=== PATIENT | male | born 1965 | race Two or more races ===

== ENCOUNTER 2017-01-17 06:24 | Emergency (ER) | payer SELFPAY ==
[~2017-01-17] VITALS: Ht 172.7 cm; Wt 74.8 kg
[2017-01-17 07:10] LABS: BASOPHIL % 0.3 % (0-2); PLATELET COUNT 389 x10^3mcL (130-400); RED CELL DISTRIBUTION WIDTH 13.7 % (11.5-14.5)
[2017-01-17 07:54] VITALS: BP 131/75
[2017-01-17 08:24] LABS: CALCIUM 8.7 mg/dL (8.5-10.1); CARBON DIOXIDE 23.1 mmol/L (21-32); CHLORIDE SERUM 101 mmol/L (98-107); GFR1 > 60 mL/min; GLUCOSE SERUM 178 mg/dL (74-106); POTASSIUM SERUM 3.7 mmol/L (3.5-5.1); SODIUM SERUM 138 mmol/L (136-145)
[2017-01-17 08:34] LABS: ALBUMIN 3.5 g/dL (3.4-5.0); ALKALINE PHOSPHATASE 88 U/L (46-116); ALT/SGPT 22 U/L (16-63); AST/SGOT 29 U/L (15-37); BILIRUBIN TOTAL 0.61 mg/dL (0.20-1.00); TOTAL PROTEIN, SERUM 7.3 g/dL (6.4-8.2)
[2017-01-17 08:35] LABS: AMPHETAMINE QUAL UR POSITIVE (NEG <=1000)
== END 2017-01-17 10:10 | disposition home or self-care (01) ==
LOC: ED 06:24
PROVIDERS: Emergency Medicine
DX: F43.20 Adjustment disorder, unspecified (principal); F15.90 Other stimulant use, unspecified, uncomplicated; M79.641 Pain in right hand
CPT/HCPCS: 36415; G0480